=== PATIENT | male | born 1990 | race Caucasian/White ===

== ENCOUNTER 2018-06-17 12:15 | Emergency (ER) | payer BC, OTHER ==
[2018-06-17 12:28] VITALS: BP 162/92; PULSE 93; RESP 18; TEMP 98.2
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
== END 2018-06-17 13:17 | disposition home or self-care (01) ==
LOC: EC 12:15
DX: I10 Essential (primary) hypertension (principal); Z76.0 Encounter for issue of repeat prescription; F17.200 Nicotine dependence, unspecified, uncomplicated; Z79.899 Other long term (current) drug therapy; Z98.890 Other specified postprocedural states
CPT/HCPCS: 99283

== ENCOUNTER 2021-11-26 19:41 | Emergency (ER) | payer OTHER ==
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
[2021-11-26 22:57] VITALS: BP 132/82; PULSE 85; RESP 16; TEMP 98.2
== END 2021-11-26 22:52 | disposition home or self-care (01) ==
LOC: EC 19:41
DX: H92.21 Otorrhagia, right ear (principal); F17.290 Nicotine dependence, other tobacco product, uncomplicated; F12.90 Cannabis use, unspecified, uncomplicated
CPT/HCPCS: 99282